=== PATIENT | male | born 1985 | race Two or more races ===

== ENCOUNTER 2024-05-02 14:28 | Outpatient (REF) | payer OTHER, SELFPAY ==
--- NOTE | ~2024-05-02 | XR_ITS ---
EXAMINATION: XR BILATERAL HIPS CLINICAL INFORMATION: OA hips COMPARISON: None available. TECHNIQUE: AP and frog lateral views of each hip were obtained. FINDINGS: No fracture. Hip joint spaces are maintained. Alignment is anatomic. Sacroiliac joints and pubic symphysis are normal. Calcific density seen in the left side of the pelvis, may be related to fibroid. XR/XR hips JV min 3V IMPRESSION: No bony abnormality. No evidence of osteoarthritis. Electronically signed by: Priscila Segura MD 05/23/2024 03:01 PM EDT
[2024-05-02 14:58] LABS: MANUAL DIFF FLAG NO
[2024-05-02 15:36] LABS: Basophils Absolute Auto 0.1 X10*3/uL (0.0-0.2); Basophils Percent Auto 0.7 % (0-2); Eosinophils Absolute Auto 0.1 X10*3/uL (0.0-0.4); Eosinophils Percent Auto 1.8 % (0-4); Hematocrit 37.1 % (42.0-52.0); Hemoglobin 11.7 g/dl (14.0-18.0); Imm Gran Abs Auto 0.02 X10*3/uL (0.00-0.03); Imm Gran Pct Auto 0.3 % (0.0-0.4); Lymphocytes Absolute Auto 2.4 X10*3/uL (1.2-4.9); Lymphocytes Percent Auto 33.4 % (20-40); Mean Corpuscular HGB Conc 31.5 g/dl (31.0-36.0); Mean Corpuscular Hemoglobin 26.2 pg (27.0-33.0); Mean Corpuscular Volume 83.2 fL (80.0-98.0); Mean Platelet Volume 10.3 fL (9.4-12.4); Monocytes Absolute Auto 0.4 X10*3/uL (0.1-1.2); Monocytes Percent Auto 5.1 % (2-11); Neutrophils Absolute Auto 4.1 x10*3/uL (2.0-8.3); Neutrophils Percent Auto 58.7 % (45-73); Platelet Count 289 X10*3/uL (160-400); Red Blood Count 4.46 X10*6/uL (4.60-5.80); Red Cell Distribution Width 14.6 % (11.0-16.0)
[2024-05-02 16:10] LABS: Alanine Aminotransferase 13 U/L (0-40); Albumin Level 4.3 g/dL (3.5-5.0); Alkaline Phosphatase 88 U/L (39-117); Anion Gap 13 (12-20); Aspartate Amino Transferase 18 U/L (5-37); Bilirubin Total 0.3 mg/dL (0.0-1.0); Blood Urea Nitrogen 8 mg/dL (9-16); Carbon Dioxide 26 mmol/L (22-29); Chloride 106 mmol/L (96-108); Estimated Glomerular Filt Rate > 60; Glucose Random 69 mg/dL (60-115); Potassium 4.6 mmol/L (3.3-5.1); Sodium 140 mmol/L (135-145); Total Protein 7.8 g/dL (6.5-8.0)
[2024-05-02 16:25] LABS: TSH reflex Free T4 0.94 uIU/mL (0.32-4.0)
== END 2024-05-02 14:29 | disposition home or self-care (01) ==
LOC: HO.LAB 14:28
PROVIDERS: PCP Internal Medicine; Visit Provider Internal Medicine
DX: R42 Dizziness and giddiness (principal); M16.0 Bilateral primary osteoarthritis of hip; F41.8 Other specified anxiety disorders; D64.89 Other specified anemias
CPT/HCPCS: 36415; 73522; 80053; 84443; 85025

== ENCOUNTER 2024-08-19 13:40 | Outpatient (AMB) | payer OTHER, SELFPAY ==
--- NOTE | 2024-08-19 13:57 | A.OFFVIS_ITS ---
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 compensation agent was utilized during this encounter. Patient reports chronic low back pain with radiation into his right leg for about 6-7 month which has worsened over the past 3 months due to fall downstairs due to missing a step. Pain increases with walking and is most severe with climbing stairs or sitting. Pain is localized to right side of low back pain with radiation into his right sacral and lateral hip and into his right anterior thigh. His right hip strength is mildly decreased due to pain. He has been managing his symptoms with NSAIDs (ibuprofen, Aleve, diclofenac) and Salonpas with continued symptoms. Denies previous spine surgery or injections. Recent hip xray was normal. Patient is starting formal physical therapy on 08/22/24 at [facility]. Patient is currently unemployed and lives with his family he reports are good support to him. He reports depression and has history of psychiatric admissions. Patient reports completing successful rehabilitation program for alcohol abuse. He quit smoking and quit using illicit drugs over 3-4 years per patient. Patient uses marijuana for pain and sleep. Denies any fever or chills, rash, infection, swelling, gait or imbalance issues, footdrop, bladder or bowel dysfunction, or saddle anesthesia. Reports intermittent right thigh weakness due to pain. Location: Right leg, anterior thigh, chronic low back pain Duration: Chronic low back pain, right leg pain >3 months due to fall Characteristics of symptom or complaint: Aching, sharp, stiffness, stabbing, numbness, tingling Aggravating or associated factors: Walking, climbing stairs, prolonged sitting, movements, cold weather Relieving factors: NSAIDs, Salonpas, heat/ice Treatment: Hip xray-normal, starting PT at [facility] 08/22/24 [facility] Medical History (Updated 08/19/24 @ 14:28 by MAGDALENE Miguel) Pain in right thigh History of illicit drug use Marijuana abuse H/O psychiatric hospitalization MDD (major depressive disorder) Depression Asthma Review of Systems Const All systems reviewed & are unremarkable except as noted in HPI and below Physical Exam Vital Signs: Last Vital Signs Pulse 52 08/19/24 14:01 BP 107/56 L 08/19/24 14:01 BMI result Body Mass Index 21.0 General: Appears afebrile. Alert and oriented. Mood and affect appropriate. Follows and participates in conversation appropriately. Respiratory effort is unlabored. No cough. Able to transition from sit to stand unassisted. Ambulates with bilaterally normal heel strike and toe off. General: Yes no CVA tenderness Back/Spine/Pelvis Other: Patient is able to walk and stand on heels and tip toes with mild difficulty on the right otherwise demonstrating good motor tone. No limping. Can flex forward to 75-80 degrees and extend to 5-10 degrees before experiencing lumbar pain. Demonstrates 5/5 left and 4/5 right strength of quadriceps bilaterally as well as flexion/dorsiflexion of bilateral feet against resistance. 2+ pedal pulses bilaterally. Straight leg rise with dorsiflexion negative bilaterally. +2 patellar and achilles reflexes bilaterally. Facet loading test positive bilaterally. Fani sign, Zander?s, Gaenslen, Pelvic compression and Stinchfield tests are positive on the right. No groin pain with I/E hip rotations. Valsalva maneuver negative. Back: no CVA tenderness Cervical Spine: cervical ROM normal, cervical muscular tenderness and No Cervical spine tenderness Thoracic/Lumbar Spine: thoracic and lumbar spine normal to inspection, Thoracic/ lumbar spine scar(s), Lasegue's sign negative, straight leg raise negative bilaterally, paraspinal muscle tenderness, No thoracic spinal tenderness and No lumbar spinal tenderness Sacroiliac joints: bilaterally (right>left) tender to palpation Extrem General: Yes capillary refill normal, Yes no clubbing, cyanosis or edema and Yes no calf tenderness Results Reviewed Results Reviewed: XR BILATERAL HIPS 05/02/24 CLINICAL INFORMATION: OA hips COMPARISON: None available. TECHNIQUE: AP and frog lateral views of each hip were obtained. FINDINGS: No fracture. Hip joint spaces are maintained. Alignment is anatomic. Sacroiliac joints and pubic symphysis are normal. Calcific density seen in the left side of the pelvis, may be related to fibroid. IMPRESSION: No bony abnormality. No evidence of osteoarthritis. Assessment & Plan Assessment & Plan (1) Low back pain: Code(s): M54.50 - Low back pain, unspecified Category: Medical (2) Lumbar radicular pain: Code(s): M54.16 - Radiculopathy, lumbar region Category: Medical (3) Sacroiliac joint pain: Code(s): M53.3 - Sacrococcygeal disorders, not elsewhere classified Category: Medical (4) Numbness of right anterior thigh: Code(s): R20.0 - Anesthesia of skin Category: Medical Plan Lumbar spine and SIJ imaging to assess degree of degenerative changes, any subluxation, listhesis, compression fractures or pars defects. Recommend patient to start formal physical therapy and establish home exercise program as planned at [facility] on 08/22/24. If patient does not achieve pain relief after 6 weeks of PT, we will consider MRI as next steps. Script provided for gabapentin at bedtime for right leg pain and back pain. Side effects and precautions were reviewed with patient. All questions and concerns have been answered and patient agreed with the dayne tment plan. Follow-up after PT/medication review and sooner as needed. Orders: Orders XR lumbar spine 4V min Today M54.16 - Radiculopathy, lumbar region, M54.50 - Low back pain, unspecified XR sacroiliac joint min 3V Today M53.3 - Sacrococcygeal disorders, not el sewhere classified Medications: New gabapentin 300 mg PO BEDTIME 30 caps 0RF pain 30 days M54.16 - Radiculopathy, lumbar region, R20.0 - Anesthesia of skin Coding Level of Care Code New Pt Level 4 (58149) Complex EM visit Add On G2211 Diagnoses Low back pain M54.50 Lumbar radicular pain M54.16 Sacroiliac joint pain M53.3 Numbness of right anterior thigh R20.0
[2024-08-19 14:01] VITALS: BP 107/56; PULSE 52; BMI 21.0
== END 2024-08-19 14:35 | disposition home or self-care (01) ==
PROVIDERS: PCP Internal Medicine; Referring Provider Internal Medicine; Visit Provider Nurse Practitioner Family
DX: M54.50 Low back pain, unspecified (principal); M54.16 Radiculopathy, lumbar region; M53.3 Sacrococcygeal disorders, not elsewhere classified; R20.0 Anesthesia of skin
CPT/HCPCS: 99204; G2211

== ENCOUNTER 2024-08-19 13:41 | Outpatient (REF) | payer OTHER, SELFPAY ==
--- NOTE | ~2024-08-19 | XR_ITS ---
CLINICAL HISTORY: M54.50 - Low back pain, unspecified 5 views lumbar spine Comparison: None Findings: Normal vertebral body alignment. No acute fractures or dislocation. No significant degenerative change. IMPRESSION: No acute findings. This document has been electronically signed by: Ismael Mcknight MD on 08/23/2024 12:05:59
--- NOTE | ~2024-08-19 | XR_ITS ---
CLINICAL HISTORY: M53.3 - Sacrococcygeal disorders, not elsewhere classified 3 views sacroiliac joints Comparison: None Findings No acute fractures. No significant degenerative change. No erosions. IMPRESSION: No acute findings This document has been electronically signed by: Ismael Mcknight MD on 08/23/2024 12:05:02
== END 2024-08-19 13:42 | disposition home or self-care (01) ==
LOC: HO.XRAY 13:41
PROVIDERS: PCP Internal Medicine; Referring Provider Internal Medicine; Visit Provider Nurse Practitioner Family
DX: M54.50 Low back pain, unspecified (principal); M54.16 Radiculopathy, lumbar region; M53.3 Sacrococcygeal disorders, not elsewhere classified; R20.0 Anesthesia of skin; Z79.899 Other long term (current) drug therapy
CPT/HCPCS: 72110; 72202; 99202

== ENCOUNTER → 2024-08-19 14:52 | Outpatient (BNV) | payer OTHER, SELFPAY | PROVIDERS: PCP Internal Medicine; Referring Provider Internal Medicine; Visit Provider Radiology Diagnostic Radiology | DX: M54.50 Low back pain, unspecified (principal); M53.3 Sacrococcygeal disorders, not elsewhere classified | CPT/HCPCS: 72110; 72202 ==

== ENCOUNTER → 2024-09-16 14:40 | Outpatient (BNVA) | payer OTHER, SELFPAY | PROVIDERS: PCP Internal Medicine; Visit Provider Nurse Practitioner Family | DX: M54.16 Radiculopathy, lumbar region (principal); M53.3 Sacrococcygeal disorders, not elsewhere classified; R20.0 Anesthesia of skin | CPT/HCPCS: 99212 ==

== ENCOUNTER 2024-09-16 14:42 | Outpatient (AMB) | payer OTHER, SELFPAY ==
--- NOTE | 2024-09-16 14:45 | MHC.OFFVIS ---
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 He was able to complete only 2 sessions of PT due to significant increase in low back pain with right sided radiculopathy. He reports partial relief with start of gabapentin last month and requests refill for this. Back pain worsens with movements, walking or climbing stairs. Denies any cough or fever, bladder or bowel dysfunction or saddle anesthesia. PRIOR: Patient is a 39-year-old [place] Islander-speaking male presents today for right anterior thigh pain evaluation. general milling superintendent was utilized during this encounter. Patient reports chronic low back pain with radiation into his right leg for about 6-7 month which has worsened over the past 3 months due to fall downstairs due to missing a step. Pain increases with walking and is most severe with climbing stairs or sitting. Pain is localized to right side of low back pain with radiation into his right sacral and lateral hip and into his right anterior thigh. His right hip strength is mildly decreased due to pain. He has been managing his symptoms with NSAIDs (ibuprofen, Aleve, diclofenac) and Salonpas with continued symptoms. Denies previous spine surgery or injections. Recent hip xray was normal. Patient is starting formal physical therapy on 08/22/24 at [facility]. Patient is currently unemployed and lives with his family he reports are good support to him. He reports depression and has history of psychiatric admissions. Patient reports completing successful rehabilitation program for alcohol abuse. He quit smoking and quit using illicit drugs over 3-4 years per patient. Patient uses marijuana for pain and sleep. Denies any fever or chills, rash, infection, swelling, gait or imbalance issues, footdrop, bladder or bowel dysfunction, or saddle anesthesia. Reports intermittent right thigh weakness due to pain. Location: Right leg, anterior thigh, chronic low back pain Duration: Chronic low back pain, right leg pain >3 months due to fall Characteristics of symptom or complaint: Aching, sharp, stiffness, stabbing, numbness, tingling Aggravating or associated factors: Walking, climbing stairs, prolonged sitting, movements, cold weather Relieving factors: NSAIDs, Salonpas, heat/ice Treatment: Hip xray-normal, starting PT at [facility] 08/22/24 [facility] Medical History Pain in right thigh History of illicit drug use Marijuana abuse H/O psychiatric hospitalization MDD (major depressive disorder) Depression Asthma Review of Systems Const All systems reviewed & are unremarkable except as noted in HPI and below Physical Exam General: Appears afebrile. Alert and oriented. Mood and affect appropriate. Follows and participates in conversation appropriately. Respiratory effort is unlabored. No cough. Able to transition from sit to stand unassisted. Ambulates with bilaterally normal heel strike and toe off. General: Yes no CVA tenderness Back/Spine/Pelvis Other: Patient is able to walk and stand on heels and tip toes with mild difficulty on the right otherwise demonstrating good motor tone. No limping. Can flex forward to 70-75 degrees and extend to 10-15 degrees before experiencing lumbar pain. Demonstrates 5/5 left and 4/5 right strength of quadriceps bilaterally as well as flexion/dorsiflexion of bilateral feet against resistance. 2+ pedal pulses bilaterally. Straight leg rise with dorsiflexion is positive on the right. +2 patellar and achilles reflexes bilaterally. Facet loading test positive bilaterally. Fani sign, Zander?s, Gaenslen, Pelvic compression and Stinchfield tests are positive on the right. No groin pain with I/E hip rotations. Valsalva maneuver negative. Back: no CVA tenderness Cervical Spine: cervical ROM normal, cervical muscular tenderness and No Cervical spine tenderness Thoracic/Lumbar Spine: thoracic and lumbar spine normal to inspection, Thoracic/lumbar spine scar(s), Lasegue's sign positive on the right and diffuse, paraspinal muscle tenderness, No thoracic spinal tenderness and lumbar spinal tenderness at L4 and at L5 Pelvis: no buttock tenderness Sacroiliac joints: bilaterally (right>left) tender to palpation Extrem General: Yes capillary refill normal, Yes no clubbing, cyanosis or edema and Yes no calf tenderness Results Reviewed Results Reviewed: XR BILATERAL HIPS 05/02/24 CLINICAL INFORMATION: OA hips COMPARISON: None available. TECHNIQUE: AP and frog lateral views of each hip were obtained. FINDINGS: No fracture. Hip joint spaces are maintained. Alignment is anatomic. Sacroiliac joints and pubic symphysis are normal. Calcific density seen in the left side of the pelvis, may be related to fibroid. IMPRESSION: No bony abnormality. No evidence of osteoarthritis. XR lumbar spine 4V min 08/23/24 Findings: Normal vertebral body alignment. No acute fractures or dislocation. No significant degenerative change. IMPRESSION: No acute findings. XR sacroiliac joint min 3V 08/23/24 Findings No acute fractures. No significant degenerative change. No erosions. IMPRESSION: No acute findings Assessment & Plan Assessment & Plan (1) Low back pain: Code(s): M54.50 - Low back pain, unspecified Category: Medical (2) Lumbar radicular pain: Code(s): M54.16 - Radiculopathy, lumbar region Category: Medical (3) Sacroiliac joint pain: Code(s): M53.3 - Sacrococcygeal disorders, not elsewhere classified Category: Medical (4) Numbness of right anterior thigh: Code(s): R20.0 - Anesthesia of skin Category: Medical Plan Lumbar spine and SIJ imaging reports discussed with patient. He started formal physical therapy at [facility] on 08/22/24 but was able to complete only 2 sessions due to increase in his symptoms. We will proceed with MRI of the lumbar spine to assess for neural integrity and compression. He will hold PT at this time until MRI is complete. Refill provided for gabapentin with increased dose at BID. Side effects and precautions were reviewed with patient. All questions and concerns have been answered and patient agreed with the treatment plan. Follow-up MRI review and sooner as needed. Orders: Orders MR lumbar spine wo con Today M54.16 - Radiculopathy, lumbar region, R20.0 - Anesthesia of skin Medications: Changed From gabapentin 300 mg PO BEDTIME 30 days 30 caps 0RF pain M54.16 - Radiculopathy, lumbar region, R20.0 - Anesthesia of skin To gabapentin 300 mg PO BID 30 days 60 caps 3RF pain M54.16 - Radiculopathy, lumbar region, R20.0 - Anesthesia of skin Coding Level of Care Code Est Pt Level 4 (82686) Complex EM visit Add On G2211 Diagnoses Low back pain M54.50 Lumbar radicular pain M54.16 Sacroiliac joint pain M53.3 Numbness of right anterior thigh R20.0
[2024-09-16 14:50] VITALS: BP 101/65; PULSE 56; BMI 20.7
== END 2024-09-16 14:56 | disposition home or self-care (01) ==
PROVIDERS: PCP Internal Medicine; Visit Provider Nurse Practitioner Family
DX: M54.50 Low back pain, unspecified (principal); M54.16 Radiculopathy, lumbar region; M53.3 Sacrococcygeal disorders, not elsewhere classified; R20.0 Anesthesia of skin
CPT/HCPCS: 99214; G2211

== ENCOUNTER 2024-10-09 17:48 | Outpatient (REF) | payer OTHER, SELFPAY ==
--- NOTE | ~2024-10-09 | MR_ITS ---
EXAMINATION: MR LUMBAR SPINE WITHOUT CONTRAST CLINICAL INFORMATION: Radiculopathy, lumbar region. COMPARISON: None available. TECHNIQUE: MRI of the lumbar spine was obtained using routine sequences without contrast. FINDINGS: Last rib-bearing vertebra labeled T12. Bone marrow inhomogeneity. No bone marrow STIR signal abnormality. Multilevel disc desiccation more conspicuous at L1 to, L2-3 levels. Marginal osteophyte formation L1 to and L2-3 levels. The alignment is normal. The conus medullaris and at intervertebral disc T12-L1 level with normal signal. T12-L1: No disc herniation. No neuroforamina stenosis. Left perineural cyst. L1-2: Broad-based disc bulging. Facet joint hypertrophy. Facet effusion. No central spinal canal or neuroforamina stenosis. Small left perineural cyst. L2-3: Broad-based disc bulging. Facet joint hypertrophy. No central spinal canal or neuroforamina stenosis. L3-4: Broad-based disc bulging. Facet joint hypertrophy. Reduced AP diameter of the thecal sac and the neural foramina. No compression upon neural elements. L4-5: Broad-based disc bulging. Facet joint hypertrophy. Reduced AP diameter of the thecal sac and the neural foramina likely encroaching the exiting nerve roots. L5-S1: Broad-based disc bulging. Facet joint hypertrophy. No central spinal canal stenosis. Bilateral neuroforamina narrowing. Right perineural cyst. Bone marrow inhomogeneity of the bony pelvis and sacrum. 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 No prevertebral compartment hematoma, mass or fluid collections. Heterogeneous soft tissue abnormalities in the lower pelvis which could be related to volume averaging of the sigmoid colon.. MR/MR lumbar spine wo con IMPRESSION: Multilevel lumbar spondylosis, L1-2- to L5 S1 more conspicuous at L3-4 and L4-5 levels likely encroaching the exiting nerve roots at L4-5. Abnormal bone marrow signal. A lymphoproliferative disorder cannot be excluded. Bilateral multilevel, perineural cysts. Electronically signed by: Jason Oconnell MD 10/10/2024 01:23 PM [facility]
== END 2024-10-09 17:49 | disposition home or self-care (01) ==
LOC: HO.MRI 17:48
PROVIDERS: PCP Internal Medicine; Visit Provider Nurse Practitioner Family
DX: M54.16 Radiculopathy, lumbar region (principal); R20.0 Anesthesia of skin
CPT/HCPCS: 72148

== ENCOUNTER → 2024-10-09 17:56 | Outpatient (BNV) | payer OTHER, SELFPAY | PROVIDERS: PCP Internal Medicine; Visit Provider Radiology Diagnostic Radiology | DX: M47.816 Spondylosis without myelopathy or radiculopathy, lumbar region (principal) | CPT/HCPCS: 72148 ==

== ENCOUNTER 2024-10-17 13:02 | Outpatient (AMB) | payer OTHER, SELFPAY ==
--- NOTE | 2024-10-17 13:11 | A.OFFVIS_ITS ---
Vital Signs 10/17/24 13:13 Height 5 ft 9 in Weight 140 lb BMI 20.7 BP 133/74 Blood Pressure Location Rt brachial Position Sitting Pulse 62 Pulse Source Pulse Oximeter Intake Visit Reasons: MRI results Intake Note: Pain today 05/30 Blood Bank Laboratory Technologist Required: Yes Blood Bank Laboratory Technologist Language: Cod Clerk Services: Blood Bank Laboratory Technologist Present Blood Bank Laboratory Technologist Name: Melany #[id number] Accompanied by: Self / Same As Patient Allergies No Known Allergies Allergy (Mild, Verified 10/17/24 13:13) NONE HPI Comments Details: Patient presents today for follow up to discuss recent lumbar spine MRI results. He continues to endorse low back pain with radiculopathy, bilaterally, right worse than left in L5 distribution on the left and L4 on the right. Patient denies any recent trauma, injury or falls except mechanical fall late last year when he missed a step and landed on his buttocks and back after fall from downstairs. Lumbar spine MRI results are noted below and were discussed in greater detail and imaging with patient today with assistance of language interpreter. Patient would like to proceed with Oncology evaluation in [place] prior to interventional treatments for his axial and radicular low back pain. Patient reports Tylenol and gabapentin 300 mg BID have been partially effective for pain control. Denies any recent cough, cold, infection, fever, weakness, foot drop, bladder or bowel dysfunction, saddle anesthesia or any significant changes in medical history since last office visit. Denies any changes to medications, medical history or recent hospitalizations. PRIOR: Patient presents today for follow up after physical therapy. He was able to complete only 2 sessions of PT due to significant increase in low back pain with right sided radiculopathy. He reports partial relief with start of gabapentin last month and requests refill for this. Back pain worsens with movements, walking or climbing stairs. Denies any cough or fever, bladder or bowel dysfunction or saddle anesthesia. PRIOR: Patient is a 39-year-old Armenian-speaking male presents today for right anterior thigh pain evaluation. language interpreter was utilized during this encounter. Patient reports chronic low back pain with radiation into his right leg for about 6-7 month which has worsened over the past 3 months due to fall downstairs due to missing a step. Pain increases with walking and is most severe with climbing stairs or sitting. Pain is localized to right side of low back pain with radiation into his right sacral and lateral hip and into his right anterior thigh. His right hip strength is mildly decreased due to pain. He has been managing his symptoms with NSAIDs (ibuprofen, Aleve, diclofenac) and Salonpas with continued symptoms. Denies previous spine surgery or injections. Recent hip xray was normal. Patient is starting formal physical therapy on 08/22/24 at [facility]. Patient is currently unemployed and lives with his family he reports are good support to him. He reports depression and has history of psychiatric admissions. Patient reports completing successful rehabilitation program for alcohol abuse. He quit smoking and quit using illicit drugs over 3-4 years per patient. Patient uses marijuana for pain and sleep. Denies any fever or chills, rash, infection, swelling, gait or imbalance issues, footdrop, bladder or bowel dysfunction, or saddle anesthesia. Reports intermittent right thigh weakness due to pain. Location: Right leg, anterior thigh, chronic low back pain Duration: Chronic low back pain, right leg pain >3 months due to fall Characteristics of symptom or complaint: Aching, sharp, stiffness, stabbing, numbness, tingling Aggravating or associated factors: Walking, climbing stairs, prolonged sitting, movements, cold weather Relieving factors: NSAIDs, Salonpas, heat/ice Treatment: Hip xray-normal, starting PT at [facility] 08/22/24 ON LICENSE OF [facility] Medical History Pain in right thigh History of illicit drug use Marijuana abuse H/O psychiatric hospitalization MDD (major depressive disorder) Depression Asthma Review of Systems Const All systems reviewed & are unremarkable except as noted in HPI and below Denies body aches, Denies chills, Reports difficulty sleeping, Reports fatigue, Denies fever(s), Denies frequent falls, Reports headache(s), Reports lethargy, Denies malaise, Denies night sweats, Reports weakness and Denies weight loss ENT Reports headache(s) Neuro Denies frequent falls, Reports headache(s) and Reports weakness Endo Reports fatigue Physical Exam General: Appears afebrile. Alert and oriented. Mood and affect appropriate. Follows and participates in conversation appropriately. Respiratory effort is unlabored. No cough. Able to transition from sit to stand unassisted. Ambulates with bilaterally normal heel strike and toe off. Const General: cooperative, alert, awake, in distress (due to pain) and tired appeari ng; No diaphoretic Nutritional Appearance: thin Orientation/consciousness: patient oriented x3 Limitations: language barrier General: Yes no CVA tenderness Back/Spine/Pelvis Other: Patient is able to walk and stand on heels and tip toes with mild difficulty on the right otherwise demonstrating good motor tone. No limping. Can flex forward to 70-75 degrees and extend to 5-10 degrees before experiencing lumbar pain. Demonstrates 5/5 left and 4/5 right strength of quadriceps bilaterally as well as flexion/dorsiflexion of bilateral feet against resistance. 2+ pedal pulses bilaterally. Straight leg rise with dorsiflexion is positive on the right. +2 patellar and achilles reflexes bilaterally. Facet loading test positive bilaterally. Fani sign, Zander?s, Gaenslen, Pelvic compression and Stinchfield tests are positive on the right. No groin pain with I/E hip rotations. Valsalva maneuver negative. Back: no CVA tenderness Cervical Spine: cervical ROM normal, cervical muscular tenderness and No Cervical spine tenderness Thoracic/Lumbar Spine: thoracic and lumbar spine normal to inspection, Thoracic/lumbar spine scar(s), Lasegue's sign positive on the right and diffuse, paraspinal muscle tenderness, No thoracic spinal tenderness and lumbar spinal tenderness at L4 and at L5 Pelvis: buttock tenderness bilaterally Sacroiliac joints: bilaterally (right>left) tender to palpation Sacrum: no tenderness Coccyx: no tenderness Neuro General: patient oriented x3 Extrem General: Yes capillary refill normal, Yes no clubbing, cyanosis or edema and Yes no calf tenderness Results Reviewed Results Reviewed: XR BILATERAL HIPS 05/02/24 CLINICAL INFORMATION: OA hips COMPARISON: None available. TECHNIQUE: AP and frog lateral views of each hip were obtained. FINDINGS: No fracture. Hip joint spaces are maintained. Alignment is anatomic. Sacroiliac joints and pubic symphysis are normal. Calcific density seen in the left side of the pelvis, may be related to fibroid. IMPRESSION: No bony abnormality. No evidence of osteoarthritis. XR lumbar spine 4V min 08/23/24 Findings: Normal vertebral body alignment. No acute fractures or dislocation. No significant degenerative change. IMPRESSION: No acute findings. XR sacroiliac joint min 3V 08/23/24 Findings No acute fractures. No significant degenerative change. No erosions. IMPRESSION: No acute findings MR LUMBAR SPINE WITHOUT CONTRAST 10/09/24 CLINICAL INFORMATION: Radiculopathy, lumbar region. COMPARISON: None available. TECHNIQUE: MRI of the lumbar spine was obtained using routine sequences without contrast. FINDINGS: Last rib-bearing vertebra labeled T12. Bone marrow inhomogeneity. No bone marrow STIR signal abnormality. Multilevel disc desiccation more conspicuous at L1 to, L2-3 levels. Marginal osteophyte formation L1 to and L2-3 levels. The alignment is normal. The conus medullaris and at intervertebral disc T12-L1 level with normal signal. T12-L1: No disc herniation. No neuroforamina stenosis. Left perineural cyst. L1-2: Broad-based disc bulging. Facet joint hypertrophy. Facet effusion. No central spinal canal or neuroforamina stenosis. Small left perineural cyst. L2-3: Broad-based disc bulging. Facet joint hypertrophy. No central spinal canal or neuroforamina stenosis. L3-4: Broad-based disc bulging. Facet joint hypertrophy. Reduced AP diameter of the thecal sac and the neural foramina. No compression upon neural elements. L4-5: Broad-based disc bulging. Facet joint hypertrophy. Reduced AP diameter of the thecal sac and the neural foramina likely encroaching the exiting nerve roots. L5-S1: Broad-based disc bulging. Facet joint hypertrophy. No central spinal canal stenosis. Bilateral neuroforamina narrowing. Right perineural cyst. Bone marrow inhomogeneity of the bony pelvis and sacrum. 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 No prevertebral compartment hematoma, mass or fluid collections. Heterogeneous soft tissue abnormalities in the lower pelvis which could be related to volume averaging of the sigmoid colon.. IMPRESSION: Multilevel lumbar spondylosis, L1-2- to L5 S1 more conspicuous at L3-4 and L4-5 levels likely encroaching the exiting nerve roots at L4-5. Abnormal bone marrow signal. A lymphoproliferative disorder cannot be excluded. Bilateral multilevel, perineural cysts. Assessment & Plan Assessment & Plan (1) Lumbar radicular pain: Code(s): M54.16 - Radiculopathy, lumbar region Category: Medical (2) Sacroiliac joint pain: Code(s): M53.3 - Sacrococcygeal disorders, not elsewhere classified Category: Medical (3) Low back pain: Code(s): M54.50 - Low back pain, unspecified Category: Medical (4) Abnormal MRI, lumbar spine: Code(s): R93.7 - Abnormal findings on diagnostic imaging of other parts of musculoskeletal system Category: Medical (5) Numbness of right anterior thigh: Code(s): R20.0 - Anesthesia of skin Category: Medical Plan Discussed lumbar spine in greater detail and imaging with patient today with assistance of language interpreter. Patient would like to proceed with Oncology evaluation in [place] prior to interventional treatments for his axial and radicular low back pain. Referral submitted to [facility] to further evaluate bone marrow inhomogeneity of the bony pelvis and sacrum. Refill provided for gabapentin with increased dose. Side effects and precautions were reviewed with patient. All questions and concerns have been answered and patient agreed with the treatment plan. Follow-up Oncology evaluation and sooner as needed. Orders: Referrals Hematology & Oncology Referral M54.16 - Radiculopathy, lumbar region, M54.50 - Low back pain, unspecified, R93.7 - Abnormal findings on diagnostic imaging of other parts of musculoskeletal system Medications: Changed From gabapentin 300 mg PO BID 30 days 60 caps 3RF pain M53.3 - Sacrococcygeal disorders, not elsewhere classified, M54.16 - Radiculopathy, lumbar region To gabapentin 400 mg PO TID 30 days 90 caps 0RF pain M53.3 - Sacrococcygeal disorders, not elsewhere classified, M54.16 - Radiculopathy, lumbar region Coding Level of Care Code Est Pt Level 4 (76436) Complex EM visit Add On G2211 Diagnoses Lumbar radicular pain M54.16 Sacroiliac joint pain M53.3 Low back pain M54.50 Abnormal MRI, lumbar spine R93.7 Numbness of right anterior thigh R20.0
[2024-10-17 13:13] VITALS: BP 133/74; PULSE 62; BMI 20.7
== END 2024-10-17 13:37 | disposition home or self-care (01) ==
PROVIDERS: PCP Internal Medicine; Visit Provider Nurse Practitioner Family
DX: M54.16 Radiculopathy, lumbar region (principal); M53.3 Sacrococcygeal disorders, not elsewhere classified; M54.50 Low back pain, unspecified; R93.7 Abnormal findings on diagnostic imaging of other parts of musculoskeletal system; R20.0 Anesthesia of skin
CPT/HCPCS: 99214; G2211

== ENCOUNTER → 2024-10-17 13:02 | Outpatient (BNVA) | payer OTHER, SELFPAY | PROVIDERS: PCP Internal Medicine; Visit Provider Nurse Practitioner Family | DX: M54.16 Radiculopathy, lumbar region (principal); M53.3 Sacrococcygeal disorders, not elsewhere classified; M54.50 Low back pain, unspecified; R93.7 Abnormal findings on diagnostic imaging of other parts of musculoskeletal system; R20.0 Anesthesia of skin | CPT/HCPCS: 99212 ==